=== PATIENT | female | born 1970 ===

== ENCOUNTER 2022-10-03 10:05 | Inpatient (IN) | payer OTHER ==
[~2022-10-03] VITALS: Ht 157.5 cm; Wt 59.4 kg
[2022-10-03] MEDS ORDERED: TRULICITY0.75 MG/0. (13:34)
[2022-10-03] MEDS ORDERED: ISTALOL2.5 ML OTIC (13:34)
[2022-10-03] MEDS ORDERED: BRIMONIDINE TART5 ML OP (13:35)
[2022-10-03] MEDS ORDERED: GLIMEPIRIDE2 MG (13:35)
[2022-10-03] MEDS ORDERED: ZESTRIL10 M1 PO (13:35)
[2022-10-03] MEDS ORDERED: XELPROS2.5 ML OP (13:35)
[2022-10-03] MEDS ORDERED: CILOSTAZOL50 MG PO (13:36)
[2022-10-03] MEDS ORDERED: ATORVASTATIN CA40 MG PO (13:36)
[2022-10-03] MEDS ORDERED: PEPCID40 MG PO (13:36)
[2022-10-03] MEDS ORDERED: PANTOPRAZOLE SO40 MG PO (13:37)
[2022-10-09] MEDS ORDERED: DULOXETINE HCL60 MG (09:12)
[2022-10-09] MEDS ORDERED: RESTORIL30 MG (09:12)
[2022-10-09] MEDS ORDERED: ST. JOSEPH ASPI81 M2 (09:13)
[2022-10-09] MEDS ORDERED: TRAZODONE HCL100 MG (09:13)
[2022-10-10] MEDS ORDERED: LEVSIN0.125 MG PO (11:22)
[2022-10-10] MEDS ORDERED: MIRALAX17 GM PO (11:23)
[2022-10-10] MEDS ORDERED: INTESTINEX680 M1 PO (11:23)
[2022-10-10] MEDS ORDERED: ACETAMINOPHEN500 M2 PO (11:24)
[2022-10-10] MEDS ORDERED: NEURONTIN300 MG PO (11:24)
== END 2022-10-10 11:52 | disposition home or self-care (01) | DRG 330 ==
LOC: O/R 10-08 05:00 → SURH 10-08 05:00
PROVIDERS: Internal Medicine Geriatric Medicine; ADMIT Colon & Rectal Surgery; ATTEND Colon & Rectal Surgery
PROC: 0DTN4ZZ Resection of Sigmoid Colon, Percutaneous Endoscopic Approach (ICD-10-PCS; 2022-10-08)
PROC: 0DBP4ZZ Excision of Rectum, Percutaneous Endoscopic Approach (ICD-10-PCS; principal; 2022-10-08 18:15)
DX: K57.32 Diverticulitis of large intestine without perforation or abscess without bleeding (principal); K92.1 Melena; N73.6 Female pelvic peritoneal adhesions (postinfective)